=== PATIENT | male | born 1980 | race Hispanic/Latino ===

== ENCOUNTER 2022-06-09 15:53 | Emergency (ER) | payer OTHER ==
[2022-06-09] MEDS ORDERED: IBUPROFEN 400 MG TAB ONE (16:24)
--- NOTE | 2022-06-09 17:21 | RAD REPORT ---
EXAM DESCRIPTION: CT - Head C Spine Mpr Wo Con - 06/09/2022 4:53 pm CLINICAL HISTORY: Head and neck injury status post injury. Head and neck pain COMPARISON: None. TECHNIQUE: Computed axial tomography of the head and cervical spine was obtained. Sagittal and coronal reconstruction was performed. All CT scans are performed using dose optimization technique as appropriate and may include automated exposure control or mA/KV adjustment according to patient size. FINDINGS: An intracranial bleed is not seen. The ventricles are normal in caliber. No significant hypodensity within the brain. An extra-axial fluid collection is not noted. Fluid within the visualized sinuses and mastoids is not seen A cervical fracture is not visualized. No dislocation is noted. IMPRESSION: No acute intracranial abnormality is seen. A cervical fracture is not visualized. If the patient continues to have symptoms to suggest intracranial /spinal cord pathology then MRI wou ld be recommended
--- NOTE | 2022-06-09 17:47 | RAD REPORT ---
EXAM DESCRIPTION: RAD - Shoulder Left 2 View - 06/09/2022 5:17 pm CLINICAL HISTORY: Left shoulder pain FINDINGS: No fracture or dislocation is seen.
--- NOTE | 2022-06-09 18:16 | ER ---
Nurse's Notes [facility] Name: Indio Hillman Age: 42 yrs Sex: Male : 1980 Arrival Date: 06/09/2022 Time: 15:54 Bed 9 Private MD: Diagnosis: Unspecified injury of head, initial encounter;Other sprain of left shoulder joint Presentation: 06/09 15:55 Chief complaint: EMS states: cement line hit him on left shoulder, ROM intact, also hit iw his head but was wearing hard hat, no LOC. 15:56 Method Of Arrival: Ambulatory iw 15:57 Coronavirus screen: At this time, the client does not indicate any symptoms associated iw with coronavirus-19. Risk Assessment: Do you want to hurt yourself or someone else? Patient reports no desire to harm self or others. 15:57 Acuity: MIRIAM 4 iw Historical: - Allergies: 18:24 No Known Allergies; iw - Home Meds: 18:24 None [Active]; iw - PMHx: 18:24 None; iw - Immunization history:: Adult Immunizations . Vital Signs: 18:24 BP 126 / ???; Pulse 84; Resp 18; Temp 98; Pulse Ox 100% on R/A; iw ED Course: 15:54 Patient arrived in ED. iw 15:57 Triage completed. iw 15:57 Kaylan Erazo, RN is Primary Nurse. iw 15:58 Rodriguez Valdez PA is PHCP. [facility] 15:58 Garret Ledesma MD is Attending Physician. jmm 16:55 CT Head C Spine In Process Unspecified. EDMS 17:19 Shoulder Left (2 View) XRAY In Process Unspecified. EDMS 18:24 No provider procedures requiring assistance completed. Patient did not have IV access iw during this emergency room visit. Administered Medications: 16:25 Drug: Ibuprofen PO 800 mg Route: PO; iw 17:00 Follow up: Response: No adverse reaction iw Outcome: 18:15 Discharge ordered by . m 18:46 Patient left the ED. iw Signatures: Dispatcher [employer] EDMS Rodriguez Valdez PA PA jmm Williams, Irene, RN RN iw
--- NOTE | 2022-06-09 18:16 | EDPHYS ---
Physician Documentation [facility] Name: Indio Hillman Age: 42 yrs Sex: Male : 1980 Arrival Date: 06/09/2022 Time: 15:54 Bed 9 Private MD: ED Physician Garret Ledesma HPI: 06/09 18:10 This 42 yrs old Male presents to ER via Ambulatory with complaints of shoulder jmm pain. 18:10 Onset: The symptoms/episode began/occurred gradually. This is a 42 year old male with jmm no chronic medical conditions that presents to the ED with complaints of head/neck and shoulder injury while at work. Hit with a heavy rope. Denies LOC. Historical: - Allergies: 18:24 No Known Allergies; iw - Home Meds: 18:24 None [Active]; iw - PMHx: 18:24 None; iw - Immunization history:: Adult Immunizations . ROS: 18:10 Constitutional: Negative for fever, chills, and weight loss, Cardiovascular: Negative jmm for chest pain, palpitations, and edema, Respiratory: Negative for shortness of breath, cough, wheezing, and pleuritic chest pain, Abdomen/GI: Negative for abdominal pain, nausea, vomiting, diarrhea, and constipation. 18:10 MS/extremity: Positive for injury or acute deformity, pain. 18:10 Neuro: Positive for headache. 18:10 All other systems are negative. Exam: 18:10 Constitutional: This is a well developed, well nourished patient who is awake, alert, jmm and in no acute distress. Head/Face: atraumatic. Eyes: EOMI, no conjunctival erythema appreciated ENT: Moist Mucus Membranes Neck: Trachea midline, Supple Chest/axilla: Normal chest wall appearance and motion. Cardiovascular: Regular rate and rhythm. No edema appreciated Respiratory: Normal respirations, no respiratory distress appreciated Abdomen/GI: Non distended Back: Normal ROM Skin: General appearance color normal 18:10 Musculoskeletal/extremity: Left shoulder tender to palpation, pain on abduction, full wellness assistant strength, full radial pulse, neurovascular tact, compartments are soft. 18:10 Skin: Appearance: Color: normal in color. 18:10 Neuro: Orientation: is normal, Mentation: is normal, Memory: is normal. Vital Signs: 18:24 BP 126 / ???; Pulse 84; Resp 18; Temp 98; Pulse Ox 100% on R/A; iw MDM: 15:58 Patient medically screened. [facility] 18:14 Differential diagnosis: Head injury, fracture, sprain. Data reviewed: vital signs, [facility] nurses notes, radiologic studies, CT scan. I considered the following discharge prescriptions or medication management in the emergency department Medications were administered in the Emergency Department. See MAR. Independent interpretation of the following test(s) in the Emergency Department X-Ray: My interpretation is No fracture appreciated. Counseling: I had a detailed discussion with the patient and/or guardian regarding: the historical points, exam findings, and any diagnostic results supporting the discharge/admit diagnosis, radiology results, the need for outpatient follow up, to return to the emergency department if symptoms worsen or persist or if there are any questions or concerns that arise at home. 06/09 16:01 Order name: CT Head C Spine; Complete Time: 17:26 [facility] 06/09 16:01 Order name: Shoulder Left (2 View) XRAY; Complete Time: 17:49 [facility] Administered Medications: 16:25 Drug: Ibuprofen PO 800 mg Route: PO; iw 17:00 Follow up: Response: No adverse reaction iw Disposition Summary: 06/09/22 18:15 Discharge Ordered Location: Home [facility] Condition: Stable [facility] Diagnosis - Unspecified injury of head, initial encounter [facility] - Other sprain of left shoulder joint [facility] Followup: [facility] - With: Private Physician - When: 2 - 3 days - Reason: Recheck today's complaints, Continuance of care, Re-evaluation by your physician Discharge Instructions: - Discharge Summary Sheet [facility] - Head Injury, Adult [facility] - Shoulder Sprain [facility] Forms: - Work release form [facility] - Medication Reconciliation Form [facility] - Thank You Letter [facility] - Antibiotic Education [facility] - Prescription Opioid Use [facility] Prescriptions: - Diclofenac Sodium 75 mg Oral Tablet Sustained Release - take 1 tablet by ORAL route 2 times per day; 30 tablet; Refills: 0, Product [facility] Selection Permitted Signatures: Dispatcher [employer] EDRodriguez Dunn PA PA jmm Williams, Irene, RN RN iw
[2022-06-09 21:06] VITALS: TEMP 98; O2SAT 100
== END 2022-06-09 18:46 | disposition home or self-care (01) ==
LOC: ER 15:53
DX: S09.90XA Unspecified injury of head, initial encounter (principal); S43.492A Other sprain of left shoulder joint, initial encounter
CPT/HCPCS: 70450; 72125